=== PATIENT | female | born 1960 | race Caucasian/White ===

== ENCOUNTER 2021-01-06 18:12 | Emergency (ER) | payer OTHER ==
--- NOTE | 2021-01-06 18:53 | ED Physician Documentation ---
PD HPI OPHTHO - Stated complaint Stated Complaint: EYE PX - Chief complaint Chief Complaint: Heent - History obtained from History obtained from: Patient - Additional information Additional information: 60-year-old woman who does not wear contact lenses felt like something was in her eye for the last day or 2. Then suddenly got more severe with right eye pain this afternoon over the last couple of hours. Her vision is relatively unchanged. Review of Systems Ten Systems: 10 systems reviewed and negative Constitutional: denies: Fever, Chills Ears: reports: Reviewed and negative Nose: reports: Reviewed and negative PD PAST MEDICAL HISTORY - Allergies Allergies/Adverse Reactions: Allergies Allergy/AdvReac Type Severity Reaction Status Date / Time No Known Drug Allergies Allergy Verified 01/06/21 18:28 PD ED PE NORMAL - Vitals Vital signs reviewed: Yes - General General: Alert and oriented X 3, No acute distress, Other (She looks uncomfortable but pain is completely gone after the administration of proparacaine in the right eye.) - HEENT HEENT: PERRL, EOMI, Other (No foreign body noted on gross exam, looking in the fornices or with floor seen. Pressure on the right is 14.) - Neck Neck: Supple, no meningeal sign, No bony TTP - Neuro Neuro: Alert and oriented X 3, Normal speech Results - Vitals Vitals: Vital Signs - 24 hr 01/06/21 01/06/21 18:29 19:14 Temperature 36.6 C 36.4 C L Heart Rate 83 83 Respiratory 16 20 Rate Blood Pressure 160/100 H 145/93 H O2 Saturation 96 Oxygen O2 Source Room air PD MEDICAL DECISION MAKING - ED course ED course: 60-year-old woman presents with severely painful foreign body sensation in the right eye with intact vision. She does not wear contacts. There is no sign of infection. On initial evaluation I was unable to see any foreign body or fluorescein uptake. She was irrigated and then let to sit. The foreign body sensation came back, she was anesthetized again, and thoroughly irrigated. After another period of observation the pain came back again. I contacted Irvin José, ophthalmology and he will see the patient tomorrow. She was given a very limited amount of 1-10 diluted proparacaine to help with pain overnight. She understands she cannot use this for more than 24 hours. Departure - Departure Disposition: 01 Home, Self Care Clinical Impression: Sensation of foreign body in eye Condition: Good Record reviewed to determine appropriate education?: Yes Follow-Up: Irvin José MD [Provider Admit Priv/Credential] - Comments: Today you were seen for foreign body sensation in the right eye. It got better with anesthetic, but seems to come back readily when the anesthetic wears off. I am unable to find any foreign body or other abnormality in the eye. I am giving a limited amount of diluted proparacaine, at a 10% concentration to be used for no more than 24 hours. I have contacted our home visitor [facility], tomorrow his clinic will be in [place] but he is happy to see you. You should call [phone] at 8 AM to make an appointment. His help desk manager staff should be aware of your case. Irvin José MD [id number], [address] [place] [address]
[2021-01-06 20:00] VITALS: BP 152/90
== END 2021-01-06 20:00 | disposition home or self-care (01) ==
LOC: ED 18:12
DX: H57.9 Unspecified disorder of eye and adnexa (principal)
CPT/HCPCS: 99281; 99283